=== PATIENT | female | born 1995 | race African-American/Black ===

== ENCOUNTER 2021-07-27 13:29 | Outpatient (CLI) | payer OTHER | END 2021-07-27 13:30 | disposition home or self-care (01) | LOC: CSHRAD 13:29 | PROVIDERS: ATTEND Family Medicine | DX: M54.50 Low back pain, unspecified (principal); M54.6 Pain in thoracic spine; M41.84 Other forms of scoliosis, thoracic region; M41.85 Other forms of scoliosis, thoracolumbar region | CPT/HCPCS: 72072; 72100 ==

== ENCOUNTER 2023-08-29 12:53 | Emergency (ER) | payer MEDICARE, OTHER ==
[2023-08-29] MEDS ORDERED: Ketorolac Tromethamine 30 MG/ML VIAL ONE (14:30)
[2023-08-29] MEDS ORDERED: Dexamethasone 10 MG/ML VIAL ONE (14:30)
[2023-08-29] MEDS ORDERED: Ondansetron ODT 4 MG TAB ONE (14:30)
[2023-08-29 15:03] LABS: SARS-CoV-2 NAA Rapid Test Not Detected (NotDetected)
== END 2023-08-29 15:32 | disposition home or self-care (01) ==
LOC: CSHERS 12:53
DX: J10.1 Influenza due to other identified influenza virus with other respiratory manifestations (principal); Z20.822 Contact with and (suspected) exposure to COVID-19
CPT/HCPCS: 96372; 99283; J1100; J1885; Q0162